=== PATIENT | male | born 2005 | race Two or more races ===

== ENCOUNTER 2024-05-28 21:53 | Emergency (ER) | payer MEDICAID, SELFPAY ==
[2024-05-28 21:54] VITALS: BMI 31.6
--- NOTE | 2024-05-28 22:04 | EKG_ITS ---
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
[2024-05-28 23:01] VITALS: BP 134/84; PULSE 93; RESP 18; TEMP 36.9; O2SAT 98
--- NOTE | 2024-05-29 01:17 | PD.EDCHEST ---
ED Chest Pain RME/HPI General Chief Complaint: Chest Pain Stated Complaint: chest pain Time Seen by Provider: 05/28/24 23:25 Arrival date/time: 05/28/24 21:53 18M with no significant PMH presents to ED with 2 days of intermittent R lower CP. Patient denies URI symptoms, fall/trauma, and SOB. Dad made him come in because he found out patient was using marijuana. Limitations: no limitations Related Data Allergies Allergy/AdvReac Type Severity Reaction Status Date / Time No Known Allergies Allergy Verified 05/28/24 21:58 Review of Systems Review of Systems Systems Reviewed: All systems reviewed, normal except as documented Constitutional Constitutional: Reports system reviewed and no additional complaints, except as documented, Denies fever(s) and Denies headache(s) ENT Ears, Nose, Mouth, and Throat: Denies disequilibrium and Denies headache(s) Cardiovascular Cardiovascular: Reports system reviewed and no additional complaints, except as documented, Reports as per HPI, Reports chest pain and Denies dyspnea Respiratory Respiratory: Reports system reviewed and no additional complaints, except as documented, Denies cough and Denies dyspnea Gastrointestinal Gastrointestinal: Reports system reviewed and no additional complaints, except as documented, Denies abdominal pain, Denies nausea and Denies vomiting Neurologic Neurologic: Reports system reviewed and no additional complaints, except as documented, Denies confusion, Denies disequilibrium and Denies headache(s) Psychiatric Psychiatric: Denies confusion Past Medical History Past Medical History CARDIAC: Negative Congestive Heart Failure RESPIRATORY: Negative Chronic Obstructive Pulmonary Disease (COPD) GENITOURINARY: Negative Renal Disease ENDOCRINE: Negative Diabetes Mellitus Type 1 or Diabetes Mellitus Type 2 Social History SMOKING STATUS: Current some day smoker ED Exam General Limitations: Present no limitations General appearance: Present alert and in no apparent distress Head Head exam: Present atraumatic Eye Eye exam: Present normal appearance, PERRL and EOMI ENT ENT exam: Present normal exam, normal oropharynx and mucous membranes moist Neck Neck exam: Present normal inspection, full ROM and trachea midline Chest Chest inspection: Present normal inspection and symmetric chest wall rise Respiratory Respiratory exam: Present normal lung sounds bilaterally Cardiovascular Cardiovascular exam: Present regular rate, normal rhythm and normal heart sounds Abdominal Exam Abdominal exam: Present soft and normal bowel sounds Extremities Exam Extremities exam: Present normal inspection and full ROM Back Exam Back exam: Present normal inspection and full ROM Neurological Exam Neurological exam: Present alert, oriented X3 and CN II-XII intact Psychiatric Psychiatric exam: Present normal affect and normal mood Skin Skin exam: Present warm, dry, intact and normal color Course Quality Measures none Orders Category Date Time Status EKG (ED ONLY) *Do not use* NOW Care 05/28/24 22:04 Completed EKG (ED Only) Stat Exams 05/28/24 22:04 Draft Vital Signs Vital signs: Vital Signs Temperature 98.4 F 05/28/24 23:01 Pulse Rate 93 05/28/24 23:01 Respiratory Rate 18 05/28/24 23:01 Blood Pressure 134/84 H 05/28/24 23:01 Pulse Oximetry (%) 98 05/28/24 23:01 Oxygen Delivery Method Room Air 05/28/24 23:01 O2 at 98% on RA and WNLs Chest Pain MDM Narrative MDM Narrative:: 18M with no significant PMH presents to ED with 2 days of intermittent R lower CP. Patient denies URI symptoms, fall/trauma, and SOB. Dad made him come in because he found out patient was using marijuana. Physical exam reveals clear lungs. RRR. Normal WOB. Patient is afebrile, calm, and alert. EKG is NSR. Sanitation Officer given. Patient data External records reviewed:: [facility] previous records Clinical information provided by:: patient Social determinants that could affect healthcare access:: substance use Patient has the following chronic illnesses:: marijuana use How is presenting disease/condition affected by chronic disease/condition?: exacerbated by Evaluation data The following diagnostics were reviewed and interpreted by me:: EKG tracing(s) Lab and/or radiology exams considered but not ordered:: ordered Interpretation Summary: above Medications / Prescriptions Medications or Prescriptions considered but not ordered:: not ordered Medication administrations:: n/a Consultations Consultation(s) initiated? (list below): No Diagnosis Chest Pain Differential Diagnosis: fracture of rib, pneumothorax, stable angina, unstable angina pectoris, atypical chest pain, st elevation myocardial infarction, costochondritis, chest pain and biliary colic Most likely diagnosis given after review of the tests above:: atypical chest pain Admission Indicated Admission indicated?: not indicated Admission Request Was there a request for admission?: No Disposition Plan Disposition Plan: Discharge Discharge Attestation Discharge Attestation: The patient and all family members were given an opportunity to ask questions and understood the discharge instructions. Discharge instructions specifically effects, indications for sooner follow up or return to the emergency department, and the expected course of current diagnosis. Patient condition: Stable Discharge Plan Plan Patient Disposition: HOME (Self Care) Disposition Comment: Stable Problem List Clinical Impression: Atypical chest pain Patient/Caregiver Discharge Instructions Education Materials: ED Chest Pain, Noncardiac Additional Instructions: Please follow-up with PCP within 24-48 hours and return immediately if symptoms worsen. Stop smoking marijuana. Print Language: Moldovan Stand Alone Forms: Patient Portal Info Letter EMERSON/KHOA Supervising Physician EMERSON/KHOA Supervising Physician: Dr. Arredondo
== END 2024-05-30 09:26 | disposition home or self-care (01) ==
PROVIDERS: Emergency Provider Emergency Medicine; PCP Pediatrics
DX: R07.89 Other chest pain (principal)
CPT/HCPCS: 93005; 99283